=== PATIENT | female | born 1995 | race Two or more races ===

== ENCOUNTER 2016-07-03 16:06 | Emergency (ER) | payer OTHER ==
--- NOTE | 2016-07-03 17:02 | EDPHY ---
H & P Stated Complaint: R RIB PAIN, STARTED THIS AM, NO TRAUMA Time Seen by Provider: 07/03/16 16:50 HPI/ROS: CHIEF COMPLAINT: Right rib pain HISTORY OF PRESENT ILLNESS: 21-year-old female a remote history of cholecystectomy complaining of atraumatic right rib pain just inferior to her right nipple. Reproducible with palpation, deep inspiration, coughing. No radiation of symptoms. Denies nausea or vomiting. Denies back pain. Denies dyspnea. Denies diaphoresis. Denies cocaine or illicit drug use. Denies personal or family history of thromboembolic disorder. Denies personal or family history of premature coronary artery disease. No chest pain with exertion. No dyspnea with exertion. No rash. PRIMARY CARE PROVIDER[facility] REVIEW OF SYSTEMS: A ten point review of systems was performed and is negative with the exception of the items mentioned in the HPI PAST MEDICAL & SURGICAL HISTORY: Remote history cholecystectomy SOCIAL HISTORY: daily cigarette smoker. No drug use. PHYSICAL EXAM (Prior to examination, patient consented to physical exam, hands were washed and my usual and customary physical exam procedures followed) 1) GENERAL: Well-developed, well-nourished, alert and oriented. Appears to be in no acute distress. 2) HEAD: Normocephalic, atraumatic 3) HEENT: Pupils equal, round, reactive to light bilaterally. Sclera anicteric. 4) NECK: Full range of motion, no meningeal signs. 5) LUNGS: Clear auscultation bilaterally, no wheezes, no rhonchi, no retractions. Tender to palpation right ribs just inferior to the right nipple. Exam with female building energy retrofit technician Veronika at bedside. No lesions. No vesicles. 6) HEART: Regular rate and rhythm, no murmur, no heave, no gallop. 7) ABDOMEN: No guarding, no rebound, no focal tenderness, negative McBurney's, negative Clark's, negative Rovsing's, negative peritoneal sign, 8) MUSCULOSKELETAL: Moving all extremities, no focal areas of tenderness, no obvious trauma. No peripheral edema or discoloration. 9) BACK: No peripheral edema or discoloration negative Homans no palpable cord 10) SKIN: No rash, no petechiae. 11) Psychiatric: Patient is oriented X 3, there is no agitation. DIFFERENTIAL DIAGNOSIS: no particular include but limited to pneumothorax, rib contusion, pulmonary embolus, chest wall pain - Personal History LMP (Females 10-55): 8-14 Days Ago Current Tetanus Diphtheria and Acellular Pertussis (TDAP): Unsure - Medical/Surgical History Hx Asthma: No Hx Chronic Respiratory Disease: No Hx Diabetes: No Hx Cardiac Disease: No Hx Renal Disease: No Hx Cirrhosis: No Hx Alcoholism: No Hx HIV/AIDS: No Hx Splenectomy or Spleen Trauma: No Other PMH: lap jeremi, left wrist surg - Social History Smoking Status: Current every day smoker Constitutional: Initial Vital Signs Temperature (C) 36.6 C 07/03/16 16:37 Heart Rate 83 07/03/16 16:37 Respiratory Rate 16 07/03/16 16:37 Blood Pressure 98/71 L 07/03/16 16:37 O2 Sat (%) 98 07/03/16 16:37 O2 Delivery Mode Room Air Allergies/Adverse Reactions: No Known Allergies Allergy (Unverified 01/10/16 21:25) Home Medications: Medication Instructions Recorded Ibuprofen [Motrin (*)] 600 mg PO Q6 #15 tab 07/03/16 ED Images - Female Images Breasts Female: 1 - Area of subjective and objective pain Medical Decision Making - Diagnostics Imaging: Chest, PA and Lateral History: Lateral right-sided rib pain without trauma Comparison: April 22, 2016 Findings: Lungs are clear, without infiltrate or consolidation. Heart size and pulmonary vascularity are normal. There is no adenopathy or mass lesion. There is no pleural effusion or pneumothorax. Bones are unremarkable for age. Specifically no right rib abnormality is identified. There is a stable minimal T7 compression deformity with some adjacent small anterior spurs at T6- T7. No new compressions have developed. There is stable right upper quadrant surgical clips consistent with previous cholecystectomy. Impression: Normal. No source for right rib pain identified. Dictated By: Pancho Garcia MD Images reviewed by myself ED Course/Re-evaluation: 5:00 p.m.: Evaluated by myself. Old medical records reviewed. Will obtain blood work, EKG, chest x-ray and re-evaluate 6:02 p.m.: Re-evaluation. She is breathing comfortably. Reviewed her EKG with Dr. Yousif show me a shortened WA interval. Doubt that this is the etiology of her acute symptoms. Did recommend she follow up with Cardiology and has provided this referral information. She has a normal chest x-ray which I reviewed and also has a negative D-dimer. She is not tachycardic. Not tachypneic. No history of exogenous estrogen use, no history of thromboembolic disorder. I think that pulmonary embolus is less than likely in this patient. Doubt pulmonary infectious etiology. Doubt zoster. I think more than likely etiology is acute chest wall pain. Recommended ibuprofen. Given my usual and customary chest pain precautions and instructions. Discussed case with Dr. Yousif in the ER. - Data Points Laboratory Results: Laboratory Results 07/03/16 17:15 17 17 07/03/16 17:15 17:15 17:15 D-Dimer < 0.27 ug/mLFEU ug/mLFEU (0.00-0.50) Sodium 139 mEq/L mEq/L (134-144) Potassium 4.0 mEq/L mEq/L (3.5-5.2) Chloride 103 mEq/L mEq/L (97-110) Carbon Dioxide 26 mEq/l mEq/l (22-31) Anion Gap 10 mEq/L mEq/L (8-16) BUN 6 mg/dL L mg/dL (7-23) Creatinine 0.6 mg/dL mg/dL (0.6-1.0) Estimated GFR > 60 Glucose 89 mg/dL mg/dL (70-100) Calcium 9.5 mg/dL mg/dL (8.5-10.4) Beta HCG, Qual NEGATIVE Departure - Departure Disposition: Home, Routine, Self-Care Clinical Impression: Right-sided chest wall pain Condition: Good Instructions: Chest Pain (ED), Chest Wall Pain (ED) Additional Instructions: Return to the ER if you develop new or worsening symptoms, if you develop shortness of breath, or any other symptoms that concern you Referrals: [facility] [Clinic] - 1-2 days without fail Bryan Cuadra MD [Medical Doctor] - 1-2 days without fail (Dr Cuadra is a fabric cutter) Prescriptions: Ibuprofen [Motrin (*)] 600 mg PO Q6 #15 tab
[2016-07-03 17:37] LABS: ANION GAP 10 mEq/L (8-16); CALCIUM 9.5 mg/dL (8.5-10.4); CARBON DIOXIDE 26 mEq/l (22-31); CHLORIDE 103 mEq/L (97-110); CREATININE 0.6 mg/dL (0.6-1.0); GLOMERULAR FILTRATION RATE > 60; GLUCOSE 89 mg/dL (70-100); SODIUM 139 mEq/L (134-144)
[2016-07-03 18:27] VITALS: BP 102/67; PULSE 76; RESP 18; TEMP 98.2; O2SAT 99
--- NOTE | 2016-07-04 09:24 | CPEKG ---
Heart Rate: 72 RR Interval: 833 P-R Interval: 96 QRSD Interval: 80 QT Interval: 364 QTC Interval: 399 P [place]: -1 QRS [place]: 84 T Wave [place]: 40 EKG Severity - BORDERLINE ECG - EKG Impression: SINUS RHYTHM EKG Impression: SHORT UT INTERVAL, ACCELERATED AV CONDUCTION Electronically Signed By: Daniel Hidalgo 06-Jul-2016 09:39:48
== END 2016-07-03 18:28 | disposition home or self-care (01) ==
DX: R07.89 Other chest pain (principal); F17.200 Nicotine dependence, unspecified, uncomplicated

== ENCOUNTER 2016-08-04 19:56 | Emergency (ER) | payer OTHER ==
--- NOTE | 2016-08-04 20:05 | EDPHY ---
H & P Time Seen by Provider: 08/04/16 20:04 - Medical/Surgical History Hx Asthma: No Hx Chronic Respiratory Disease: No Hx Diabetes: No Hx Cardiac Disease: No Hx Renal Disease: No Hx Cirrhosis: No Hx Alcoholism: No Hx HIV/AIDS: No Hx Splenectomy or Spleen Trauma: No Other PMH: lap jeremi, left wrist surg - Social History Smoking Status: Current every day smoker Constitutional: Initial Vital Signs Temperature (C) 36.8 C 08/04/16 20:15 Heart Rate 88 08/04/16 20:15 Respiratory Rate 16 08/04/16 20:15 Blood Pressure 134/88 H 08/04/16 20:15 O2 Sat (%) 97 08/04/16 20:15 O2 Delivery Mode Room Air Allergies/Adverse Reactions: No Known Allergies Allergy (Verified 08/04/16 20:17) Home Medications: Medication Instructions Recorded NK [No Known Home Meds] 08/04/16 Medical Decision Making ED Course/Re-evaluation: CHIEF COMPLAINT: Abdominal pain HISTORY OF PRESENT ILLNESS: This patient is a 21 year old female who presents to the Emergency Department complaining of intermittent abdominal pain with associated nausea and vomiting beginning three days prior to arrival. She describes her pain as worsening just after she eats and localized to the left side of her abdomen. She denies fever, chills, diarrhea, or additional complaints. Surgical history includes cholecystectomy. REVIEW OF SYSTEMS: A 10 point review of systems was performed and is negative with the exception of the elements mentioned in the history of present illness. PHYSICAL EXAM: HR 88, BP 134/88, O2 Sat 97%, RR 16. Temp noted General Appearance: Alert, well hydrated, appropriate, and non-toxic appearing. Head: Atraumatic without scalp tenderness or obvious injury Eyes: Pupils equal, round, reactive to light and accommodation, EOMI, no trauma , no injection. Ears: Clear bilaterally, no perforation, normal landmarks Nose: Atraumatic, no rhinorrhea, clear. Throat: There is no erythema or exudates, no lesions, normal tonsils, mucus membranes moist. Neck: Supple, 2+ carotid upstroke, nontender, no lymphadenopathy. Respiratory: No retractions, no distress, no wheezes, and no accessory muscle use. Lungs are clear to auscultation bilaterally. Cardiovascular: Regular rate and rhythm, no murmurs, rubs, or gallops. Bilateral carotid, radial, dorsalis pedis, and posterior tibial pulses intact. Good capillary refill all extremities. Gastrointestinal: Abdomen is soft, LLQ tenderness, non-distended, no masses, no rebound, no guarding, no peritoneal signs. Musculoskeletal: Normal active ROM of all extremities, atraumatic. Neurological: Alert, appropriate, and interactive. The patient has normal DTRs and non-focal cranial nerves, motor, sensory, and cerebellar exam. Skin: No rashes, good turgor, no nodules on palpation. Past medical history: Denies. Past surgical history: Cholecystectomy. Family history: Non-contributory. Social history: Every day smoker. DIFFERENTIAL DIAGNOSIS: The differential diagnosis for the patient's abdominal pain included but was not limited to ovarian cyst, pelvic inflammatory disease, ovarian torsion, urinary tract infection, ectopic , cholecystitis, and appendicitis. MEDICAL DECISION MAKING: This patient is a normally healthy 21 year old female who presents complaining of abdominal pain and vomiting. She has no other significant complaints. Her exam indicates mild LLQ tenderness but is otherwise benign. Will proceed with UA , labs, and test. IV established. 30mg IV Ketorolac, 4mg IV Zofran, and 0.5 IV Dilaudid administered for pain and nausea. Labs obtained and are suggestive of viral syndrome. Chemistries are normal. test is negative. UA is negative for infection. I discussed lab and UA results with the patient. She will be discharged home in good condition with instructions to eat a bland diet until symptoms improve. She is agreeable to this and will be given return precautions prior to discharge. - Data Points Laboratory Results: Laboratory Results 08/04/16 20:15 08/04/16 20:15 08/04/16 08/04/16 08/04/16 20:30 20:15 20:15 WBC RBC Hgb Hct MCV MCH MCHC RDW Plt Count MPV Neut % (Auto) Lymph % (Auto) [place] % (Auto) Eos % (Auto) Baso % (Auto) Nucleat RBC Rel Count Absolute Neuts (auto) Absolute Lymphs (auto) Absolute Monos (auto) Absolute Eos (auto) Absolute Basos (auto) Absolute Nucleated RBC Immature Gran % Immature Gran # Sodium 140 mEq/L mEq/L (134-144) Potassium 3.9 mEq/L mEq/L (3.5-5.2) Chloride 104 mEq/L mEq/L (97-110) Carbon Dioxide 23 mEq/l mEq/l (22-31) Anion Gap 13 mEq/L mEq/L (8-16) BUN 11 mg/dL mg/dL (7-23) Creatinine 0.7 mg/dL mg/dL (0.6-1.0) Estimated GFR > 60 Glucose 88 mg/dL mg/dL (70-100) Calcium 9.7 mg/dL mg/dL (8.5-10.4) Total Bilirubin 0.5 mg/dL mg/dL (0.1-1.4) Conjugated Bilirubin 0.4 mg/dL mg/dL (0.0-0.5) Unconjugated Bilirubin 0.1 mg/dL mg/dL (0.0-1.1) AST 21 IU/L IU/L (14-46) ALT 25 IU/L IU/L (9-52) Alkaline Phosphatase 63 IU/L IU/L (38-126) Total Protein 7.7 g/dL g/dL (6.3-8.2) Albumin 4.7 g/dL g/dL (3.5-5.0) Lipase 110.0 IU/L IU/L (23-300) Beta HCG, Qual NEGATIVE Urine Color YELLOW Urine Appearance MODERATELY TURBID Urine pH 7.0 (5.0-7.5) Ur Specific [place] 1.024 (1.002-1.030) Urine Protein NEGATIVE (NEGATIVE) Urine Ketones NEGATIVE (NEGATIVE) Urine Blood NEGATIVE (NEGATIVE) Urine Nitrate NEGATIVE (NEGATIVE) Urine Bilirubin NEGATIVE (NEGATIVE) Urine Urobilinogen NEGATIVE EU EU (0.2-1.0) Ur Leukocyte Esterase NEGATIVE (NEGATIVE) Ur Culture Indicated? NOT INDICATED (NI) Urine Glucose NEGATIVE (NEGATIVE) 08/04/16 20:15 WBC 9.65 10^3/uL H 10^3/uL (3.80-9.50) RBC 4.75 10^6/uL 10^6/uL (4.18-5.33) Hgb 13.9 g/dL g/dL (12.6-16.3) Hct 40.9 % % (38.0-47.0) MCV 86.1 fL fL (81.5-99.8) MCH 29.3 pg pg (27.9-34.1) MCHC 34.0 g/dL g/dL (32.4-36.7) RDW 13.7 % % (11.5-15.2) Plt Count 400 10^3/uL 10^3/uL (150-400) MPV 9.4 fL fL (8.7-11.7) Neut % (Auto) 35.2 % L % (39.3-74.2) Lymph % (Auto) 45.5 % H % (15.0-45.0) [place] % (Auto) 6.0 % % (4.5-13.0) Eos % (Auto) 12.8 % H % (0.6-7.6) Baso % (Auto) 0.3 % % (0.3-1.7) Nucleat RBC Rel Count 0.0 % % (0.0-0.2) Absolute Neuts (auto) 3.39 10^3/uL 10^3/uL (1.70-6.50) Absolute Lymphs (auto) 4.39 10^3/uL H 10^3/uL (1.00-3.00) Absolute Monos (auto) 0.58 10^3/uL 10^3/uL (0.30-0.80) Absolute Eos (auto) 1.24 10^3/uL H 10^3/uL (0.03-0.40) Absolute Basos (auto) 0.03 10^3/uL 10^3/uL (0.02-0.10) Absolute Nucleated RBC 0.00 10^3/uL 10^3/uL (0-0.01) Immature Gran % 0.2 % % (0.0-1.1) Immature Gran # 0.02 10^3/uL 10^3/uL (0.00-0.10) Sodium Potassium Chloride Carbon Dioxide Anion Gap BUN Creatinine Estimated GFR Glucose Calcium Total Bilirubin Conjugated Bilirubin Unconjugated Bilirubin AST ALT Alkaline Phosphatase Total Protein Albumin Lipase Beta HCG, Qual Urine Color Urine Appearance Urine pH Ur Specific [place] Urine Protein Urine Ketones Urine Blood Urine Nitrate Urine Bilirubin Urine Urobilinogen Ur Leukocyte Esterase Ur Culture Indicated? Urine Glucose Medications Given: Discontinued Medications Hydromorphone HCl (Dilaudid) 0.5 mg IVP EDNOW ONE Stop: 08/04/16 20:13 Last Admin: 08/04/16 20:28 Dose: 0.5 mg Sodium Chloride (Ns) 1,000 mls @ 0 mls/hr IV ONCE ONE PRN Reason: Wide Open Stop: 08/04/16 20:13 Last Admin: 08/04/16 20:20 Dose: 1,000 mls Sodium Chloride (Ns) 1,000 mls @ 0 mls/hr IV ONCE ONE PRN Reason: Wide Open Stop: 08/04/16 20:13 Last Admin: 08/04/16 20:20 Dose: 1,000 mls Ketorolac Tromethamine (Toradol) 30 mg IVP EDNOW ONE Stop: 08/04/16 20:13 Last Admin: 08/04/16 20:24 Dose: 30 mg Ondansetron HCl (Zofran) 4 mg IVP EDNOW ONE Stop: 08/04/16 20:13 Last Admin: 08/04/16 20:21 Dose: 4 mg Departure - Departure Disposition: Home, Routine, Self-Care Clinical Impression: Abdominal pain Qualifiers: Abdominal location: lower abdomen, unspecified Qualified Code(s): R10.30 - Lower abdominal pain, unspecified Nausea and vomiting Qualifiers: Vomiting type: unspecified Vomiting Intractability: non-intractable Qualified Code(s): R11.2 - Nausea with vomiting, unspecified Condition: Good Instructions: Acute Nausea and Vomiting (ED), Acute Abdominal Pain (ED) Additional Instructions: 1. Eat a bland diet until your symptoms improve. Make sure to drink plenty of fluids as tolerated. 2. Return to the Emergency Department if you experience fever or chills, severe pain, uncontrollable vomiting or diarrhea, or for other serious concerns. 3. Follow-up with your primary care provider if your symptoms do not completely resolve in 3-5 days. We have referred you to our on-call provider if you do not have a local PCP. Referrals: Aliyah Sultana MD [Medical Doctor] - As per Instructions Stand Alone Forms: School Excuse Report Scribed for: Grzegorz Hunt Report Scribed by: Meli Calloway Date of Report: 08/04/16 Time of Report: 20:08
[2016-08-04] MEDS ORDERED: NS 1,000 ML IV ONE ×2 (20:12)
[2016-08-04] MEDS ORDERED: ONDANSETRON 4 MG/2 ML VIAL IVP ONE (20:12)
[2016-08-04] MEDS ORDERED: KETOROLAC 30 MG/1 ML SDV IVP ONE (20:12)
[2016-08-04] MEDS ORDERED: HYDROmorphONE/DILAUDID 1 MG/ML SYR IVP ONE (20:12)
[2016-08-04 20:17] VITALS: RESP 16; TEMP 98.2
[2016-08-04 20:23] LABS: % IMMATURE GRANULYOCYTES 0.2 % (0.0-1.1); ABSOLUTE IMMATURE GRANULOCYTES 0.02 10^3/uL (0.00-0.10); ADD DIFF? NO; ADD MORPH? NO; ADD SCAN? NO; ATYPICAL LYMPHOCYTE FLAG 40 (0-99); FRAGMENT RBC FLAG 0 (0-99); HEMATOCRIT 40.9 % (38.0-47.0); HEMOGLOBIN 13.9 g/dL (12.6-16.3); LEFT SHIFT FLG 0 (0-99); LIPEMIA HEMOLYSIS FLAG 90 (0-99); MEAN CELL HEMOGLOBIN 29.3 pg (27.9-34.1); MEAN CELL VOLUME 86.1 fL (81.5-99.8); MEAN PLATELET VOLUME 9.4 fL (8.7-11.7); PLATELET CLUMPS FLAG 0 (0-99); PLATELET COUNT 400 10^3/uL (150-400); RED BLOOD CELL COUNT 4.75 10^6/uL (4.18-5.33); RED CELL DISTRIBUTION WIDTH 13.7 % (11.5-15.2)
[2016-08-04 20:43] LABS: ALANINE AMINOTRANSFERASE 25 IU/L (9-52); ALBUMIN 4.7 g/dL (3.5-5.0); ALKALINE PHOSPHATASE 63 IU/L (38-126); ANION GAP 13 mEq/L (8-16); ASPARTATE AMINOTRANSFERASE 21 IU/L (14-46); BILIRUBIN,TOTAL 0.5 mg/dL (0.1-1.4); BILIRUBIN-CONJUGATED 0.4 mg/dL (0.0-0.5); BILIRUBIN-UNCONJUGATED 0.1 mg/dL (0.0-1.1); CALCIUM 9.7 mg/dL (8.5-10.4); CARBON DIOXIDE 23 mEq/l (22-31); CHLORIDE 104 mEq/L (97-110); CREATININE 0.7 mg/dL (0.6-1.0); GLOMERULAR FILTRATION RATE > 60; GLUCOSE 88 mg/dL (70-100); POTASSIUM 3.9 mEq/L (3.5-5.2); SODIUM 140 mEq/L (134-144); TOTAL PROTEIN 7.7 g/dL (6.3-8.2)
[2016-08-04 20:52] LABS: COLOR YELLOW; LEUKOCYTE ESTERASE,URINE NEGATIVE (NEGATIVE); NITRITE,URINE NEGATIVE (NEGATIVE)
[2016-08-04 21:17] VITALS: BP 117/64; PULSE 80; O2SAT 98
== END 2016-08-04 21:17 | disposition home or self-care (01) ==
DX: R10.30 Lower abdominal pain, unspecified (principal); R11.2 Nausea with vomiting, unspecified; F17.200 Nicotine dependence, unspecified, uncomplicated; Z90.49 Acquired absence of other specified parts of digestive tract
CPT/HCPCS: 96374; J1170; J1885; J2405